=== PATIENT | male | born 1965 | race African-American/Black ===

== ENCOUNTER 2024-03-24 14:18 | Inpatient (IN) | payer MEDICARE ==
[~2024-03-24] VITALS: Ht 188 cm; Wt 85.7 kg
[2024-03-24] MEDS: SODIUM CHLORIDE 0.9% 1,000 ML IV ONE (15:09)
[2024-03-24] MEDS: KETOROLAC 30MG/ML VIAL IV STA (15:10)
[2024-03-24 15:21] LABS: BASOPHILS % 0.5 % (0.0-2.0); EOSINOPHILS % 1.1 % (0.0-5.0); HEMATOCRIT. 34.9 % (42.0-52.0); HEMOGLOBIN. 11.5 g/dL (14.0-18.0); LYMPHOCYTES % 8.4 % (20.0-50.0); MEAN CORPUSCULAR HEMOGLOBIN 32.2 pg (28.0-32.0); MEAN CORPUSCULAR HGB CONC 33.1 g/dL (31.0-37.0); MEAN CORPUSCULAR VOLUME 97.4 fL (80.0-94.0); MONOCYTES % 9.2 % (2.0-8.0); NEUTROPHILS % 80.8 % (40.0-76.0); PLATELET 192 x1000/uL (130-400); RED BLOOD CELL COUNT 3.58 mill/uL (4.7-6.1); RED CELL DISTRIBUTION WIDTH 12.8 % (11.6-14.6); WHITE BLOOD COUNT 8.3 x1000/uL (4.5-11.0)
[2024-03-24 15:27] LABS: CHLORIDE 109 mEq/L (98-107); POTASSIUM 3.8 mEq/L (3.5-5.1); SODIUM 143 mEq/L (136-145)
[2024-03-24 15:28] LABS: CALCIUM 8.8 mg/dL (8.7-10.4); CARBON DIOXIDE 28 mEq/L (21-32)
[2024-03-24 15:33] LABS: CREATININE 1.1 mg/dL (0.6-1.3); GLUCOSE 142 mg/dL (70-105); TROPONIN I HIGH SENSITIVITY 27 ng/L (3.0-53); UREA NITROGEN BLOOD 17 mg/dL (9-23)
[2024-03-24 15:35] LABS: ALANINE AMINOTRANSFERASE 25 IU/L (10-49); ALBUMIN 3.9 g/dL (3.2-4.8); ASPARTATE AMINOTRANSFERASE 35 IU/L (<34)
[2024-03-24 15:36] LABS: BILIRUBIN TOTAL 0.3 mg/dL (0.1-1.0)
[2024-03-24 15:48] LABS: ETHANOL BLOOD < 10 mg/dL (<10)
[2024-03-24] MEDS ORDERED: NICARDIPINE 50 MG in SODIUM CHLORIDE 0.9% 230 ML IV STA (16:12)
[2024-03-24] MEDS: NICARDIPINE 40MG/200ML PREMIX 200 ML IV NR (16:29)
[2024-03-24] MEDS: LEVETIRACETAM 500MG PREMIX 100 ML IV ONE (16:29)
[2024-03-24] MEDS ORDERED: NICARDIPINE 100 MG in SODIUM CHLORIDE 0.9% 60 ML IV PRN (17:45)
[2024-03-24 17:58] LABS: IRON 45 ug/dL (65-175)
[2024-03-24 17:59] LABS: LDL CHOLESTEROL 71 mg/dL (5-100); TRIGLYCERIDE 74 mg/dL (0-150)
[2024-03-24 18:00] LABS: CHOLESTEROL 150 mg/dL (<200); HDL CHOLESTEROL 64 mg/dL (>55)
[2024-03-24] MEDS ORDERED: NICARDIPINE 50 MG in SODIUM CHLORIDE 0.9% 250 ML IV PRN (18:00)
[2024-03-24 18:01] LABS: TOTAL IRON BINDING CAPACITY 291 ug/dl (250-425)
[2024-03-24 18:04] LABS: FOLIC ACID (FOLATE) SERUM 13.98 ng/mL (>5.38); VITAMIN B12 SERUM 325 pg/mL (211-911)
[2024-03-24 18:05] LABS: THYROID STIMULATING HORMONE 0.36 uIU/mL (0.55-4.78)
[2024-03-24 18:10] LABS: INR 0.9; PROTHROMBIN TIME 9.8 sec (9.6-11.0)
[2024-03-24] MEDS: DEXT 5%/LACTATED RINGERS 1,000 ML IV SCH (18:32)
[2024-03-24] MEDS: IOHEXOL-300 100 ML BOTTLE ONE (19:49)
[2024-03-25] VITALS (65 sets, daily range): BP systolic 117–162; BP diastolic 58–90; PULSE 61–99; RESP 11–30; TEMP 36.6696–37.39188; O2SAT 93–100
[2024-03-25] MEDS: LEVETIRACETAM 500MG PREMIX 100 ML IV SCH ×2 (00:16→09:38)
[2024-03-25] MEDS ORDERED: NICARDIPINE 100 MG in SODIUM CHLORIDE 0.9% 60 ML IV PRN ×2 (03:15→04:30)
[2024-03-25] MEDS: NICARDIPINE 100 MG in SODIUM CHLORIDE 0.9% 60 ML IV PRN ×2 (05:29→18:42)
[2024-03-25] MEDS: DEXT 5%/LACTATED RINGERS 1,000 ML IV SCH ×2 (05:30→18:42)
[2024-03-25 05:43] LABS: CHLORIDE 111 mEq/L (98-107); POTASSIUM 4.1 mEq/L (3.5-5.1); SODIUM 144 mEq/L (136-145)
[2024-03-25 05:44] LABS: HEMATOCRIT. 37.4 % (42.0-52.0); HEMOGLOBIN. 12.1 g/dL (14.0-18.0); MEAN CORPUSCULAR HEMOGLOBIN 31.6 pg (28.0-32.0); MEAN CORPUSCULAR HGB CONC 32.4 g/dL (31.0-37.0); MEAN CORPUSCULAR VOLUME 97.7 fL (80.0-94.0); MEAN PLATELET VOLUME 10.5 fl (7.4-10.4); PLATELET 202 x1000/uL (130-400); RED BLOOD CELL COUNT 3.83 mill/uL (4.7-6.1); RED CELL DISTRIBUTION WIDTH 12.9 % (11.6-14.6); WHITE BLOOD COUNT 12.8 x1000/uL (4.5-11.0)
[2024-03-25 05:45] LABS: CARBON DIOXIDE 27 mEq/L (21-32)
[2024-03-25 05:46] LABS: CALCIUM 9.1 mg/dL (8.7-10.4)
[2024-03-25 05:50] LABS: GLUCOSE 119 mg/dL (70-105)
[2024-03-25 05:51] LABS: UREA NITROGEN BLOOD 27 mg/dL (9-23)
[2024-03-25 05:52] LABS: ALANINE AMINOTRANSFERASE 36 IU/L (10-49); ALBUMIN 3.9 g/dL (3.2-4.8); ASPARTATE AMINOTRANSFERASE 53 IU/L (<34)
[2024-03-25 05:53] LABS: BILIRUBIN TOTAL 0.7 mg/dL (0.1-1.0); PHOSPHORUS 2.8 mg/dL (2.5-4.9); PROTEIN TOTAL 6.2 g/dL (6.0-8.3)
[2024-03-25 05:54] LABS: CREATININE 1.6 mg/dL (0.6-1.3)
[2024-03-25 06:57] LABS: DIFFERENTIAL COMMENT 1
[2024-03-25] MEDS: PANTOPRAZOLE SODIUM 40 MG/VIAL IV SCH (09:38)
[2024-03-25 10:13] LABS: PLATELET ESTIMATE NORMAL
[2024-03-25] MEDS ORDERED: MORPHINE SULFATE 4 MG/ML INJ (FOR IV/IM USE) IV NR (12:36)
[2024-03-25] MEDS ORDERED: THROMBIN (BOVINE) 5000 UNITS/VIAL TOP ONE (13:28)
[2024-03-25] MEDS ORDERED: LIDOCAINE HCL/EPINEPHRINE 1%-EPI 1:100,000 20ML VIAL ONE (13:28)
[2024-03-25] MEDS ORDERED: GENTAMICIN SULF 40MG/ML 2ML VIAL ONE (13:29)
[2024-03-25] MEDS ORDERED: PROPOFOL 200MG/20ML VIAL IV ONE ×2 (13:32→15:12)
[2024-03-25] MEDS ORDERED: CEFAZOLIN SODIUM 1000MG/VIAL ONE (13:32)
[2024-03-25] MEDS ORDERED: DEXAMETHASONE 4MG/ML 1ML VIAL ONE (13:32)
[2024-03-25] MEDS ORDERED: MIDAZOLAM HCL 2 MG/2 ML VIAL ONE (13:32)
[2024-03-25] MEDS ORDERED: ONDANSETRON HCL 4MG/2ML INJ ONE (13:32)
[2024-03-25] MEDS ORDERED: FENTANYL CITRATE/PF 50MCG/ML 2ML VIAL ONE (13:32)
[2024-03-25] MEDS ORDERED: ROCURONIUM BROMIDE 10MG/ML VIAL 5ML IV ONE (13:55)
[2024-03-25] MEDS ORDERED: CEFAZOLIN SODIUM 1000MG/VIAL IV SCH (14:00)
[2024-03-25] MEDS ORDERED: NALOXONE HCL 0.4MG/ML VIAL IV PRN (14:15)
[2024-03-25] MEDS ORDERED: HYDROMORPHONE HCL/PF 1MG/ML INJ ONE (14:24)
[2024-03-25] MEDS ORDERED: SUGAMMADEX SODIUM 200MG/2ML VIAL IV ONE (15:24)
[2024-03-25] MEDS: MORPHINE SULFATE 4 MG/ML INJ (FOR IV/IM USE) IV PRN (18:41)
[2024-03-25] MEDS: CEFAZOLIN 1000MG PREMIX 50ML IV SCH (18:42)
[2024-03-25] MEDS: DEXAMETHASONE 10 MG/ML VIAL IV SCH (18:42)
[2024-03-26] VITALS (93 sets, daily range): BP systolic 119–149; BP diastolic 60–88; PULSE 65–97; RESP 0–35; TEMP 37.2252–38.16972; O2SAT 92–100
[2024-03-26] MEDS: LABETALOL 5MG/ML 4ML INJ IV NR (00:33)
[2024-03-26 14:11] LABS: BG BASE EXCESS 0.7 mmol/L (-2.0-3.0); BG CARBOXYHEMOGLOBIN 0.5 % (0.5-1.5); BG DEOXYHEMOGLOBIN 3.5 % (0.0-5.0); BG HCO3 ACT 24.7 mmol/L (21.0-28.0); BG METHEMOGLOBIN 0.3 % (0.5-1.5); BG OXYGEN SATURATION 96.5 % (94.0-98.0); BG OXYHEMOGLOBIN 95.7 % (94.0-98.0); BG PCO2 37.7 mmHg (35.0-48.0); BG PH 7.435 (7.350-7.450); BG PO2 83.4 mmHg (83.0-108.0); BG SAMPLE SITE ALINE; BG TOTAL HEMOGLOBIN 11.5 g/dL (13.5-17.5); BG VENT MODE NASAL CANNULA
[2024-03-26] MEDS: ACETAMINOPHEN 650MG SUPP PR PRN (20:29)
[2024-03-27] VITALS (94 sets, daily range): BP systolic 118–160; BP diastolic 63–120; PULSE 60–122; RESP 0–44; TEMP 36.6696–37.39188; O2SAT 90–99
[2024-03-27] MEDS: IPRATROPIUM/ALBUTEROL 0.5-3(2.5)MG/3ML NEB HHN SCH (20:45)
[2024-03-28] VITALS (95 sets, daily range): BP systolic 111–146; BP diastolic 62–101; PULSE 60–102; RESP 0–35; TEMP 36.78072–37.94748; O2SAT 90–99
[2024-03-28] MEDS: ONDANSETRON HCL 4MG/2ML INJ IV PRN (01:14)
[2024-03-28] MEDS: NIFEDIPINE XL 90MG TAB PO SCH (11:57)
[2024-03-28] MEDS: CLONIDINE HCL 0.3MG/24HR PATCH TD SCH (14:51)
[2024-03-28] MEDS: HYDRALAZINE HCL 50MG TABLET PO SCH (14:51)
[2024-03-28] MEDS: DEXAMETHASONE 4MG/ML 1ML VIAL IV SCH (14:51)
[2024-03-29] VITALS (73 sets, daily range): BP systolic 55–153; BP diastolic 16–109; PULSE 62–114; RESP 7–34; TEMP 36.28068–37.33632; O2SAT 90–99
[2024-03-29 05:51] LABS: HEMOGLOBIN. 12.2 g/dL (14.0-18.0); MEAN CORPUSCULAR HEMOGLOBIN 31.3 pg (28.0-32.0); MEAN CORPUSCULAR HGB CONC 32.8 g/dL (31.0-37.0); MEAN CORPUSCULAR VOLUME 95.4 fL (80.0-94.0); MEAN PLATELET VOLUME 9.6 fl (7.4-10.4); PLATELET 253 x1000/uL (130-400); RED BLOOD CELL COUNT 3.88 mill/uL (4.7-6.1); RED CELL DISTRIBUTION WIDTH 12.4 % (11.6-14.6); WHITE BLOOD COUNT 9.9 x1000/uL (4.5-11.0)
[2024-03-29 05:56] LABS: CARBON DIOXIDE 29 mEq/L (21-32); CHLORIDE 102 mEq/L (98-107); POTASSIUM 4.1 mEq/L (3.5-5.1); SODIUM 138 mEq/L (136-145)
[2024-03-29 06:02] LABS: CREATININE 0.8 mg/dL (0.6-1.3); GLUCOSE 125 mg/dL (70-105); UREA NITROGEN BLOOD 30 mg/dL (9-23)
[2024-03-29 06:58] LABS: DIFFERENTIAL COMMENT 1
[2024-03-29 12:10] LABS: PLATELET ESTIMATE NORMAL
[2024-03-29] MEDS: BACLOFEN 10MG TABLET PO SCH (14:11)
[2024-03-30] VITALS (10 sets, daily range): BP systolic 121–159; BP diastolic 73–101; PULSE 56–87; RESP 17–20; TEMP 36.22512–36.9474; O2SAT 93–98
[2024-03-30] MEDS: ACETAMINOPHEN 650MG SUPP PR PRN (00:35)
[2024-03-30] MEDS: NITROGLYCERIN 0.4MG TABLET SL SL PRN (11:12)
[2024-03-30] MEDS: IPRATROPIUM/ALBUTEROL 0.5-3(2.5)MG/3ML NEB NEB PRN (12:50)
[2024-03-30] MEDS: LORAZEPAM 2MG/ML INJ IV PRN (16:56)
[2024-03-31] VITALS (10 sets, daily range): BP systolic 113–157; BP diastolic 67–88; PULSE 58–95; RESP 16–22; TEMP 36.28068–39.28092; O2SAT 90–100
[2024-03-31] MEDS ORDERED: NALOXONE HCL 0.4MG/ML VIAL IV PRN (09:45)
[2024-03-31] MEDS: ENOXAPARIN 40MG/0.4ML SYR SUBCUT SCH (13:33)
[2024-03-31] MEDS: TRAMADOL 50MG TABLET PO PRN (13:34)
[2024-03-31 18:22] LABS: TROPONIN I HIGH SENSITIVITY 23 ng/L (3.0-53)
[2024-03-31] MEDS: PIPERACILLIN/TAZO 3.375G/50ML 50 ML IV SCH (23:34)
[2024-04-01] VITALS (9 sets, daily range): BP systolic 111–179; BP diastolic 64–101; PULSE 61–111; RESP 18–20; TEMP 36.22512–37.503; O2SAT 95–100
[2024-04-01 00:50] LABS: CLARITY URINE CLOUDY (CLEAR); COLOR URINE DARK YELLOW (YELLOW); GLUCOSE URINE NEGATIVE (NEGATIVE); KETONES URINE NEGATIVE (NEGATIVE); LEUKOCYTE ESTERASE URINE TRACE (NEGATIVE); NITRITE URINE NEGATIVE (NEGATIVE); OCCULT BLOOD URINE NEGATIVE (NEGATIVE); PROTEIN URINE 1+ (NEGATIVE); SPECIFIC GRAVITY URINE 1.021 (1.005-1.030)
[2024-04-01 03:44] LABS: RBC URINE 0-2 /hpf (0-2); SQUAMOUS EPITHELIAL CELL URINE NONE SEEN /lpf (RARE/1+); WBC URINE 0-2 /hpf (0-2)
[2024-04-01 03:46] LABS: BACTERIA URINE TRACE
[2024-04-02] VITALS (7 sets, daily range): BP systolic 109–134; BP diastolic 70–81; PULSE 68–77; RESP 18–21; TEMP 36.05844–37.16964; O2SAT 94–97
[2024-04-03] VITALS: BP 135/82; PULSE 65; RESP 20; TEMP 37.33632; O2SAT 96
[2024-04-03 04:00] VITALS: BP 124/73; PULSE 60; RESP 18; TEMP 36.28068; O2SAT 96
[2024-04-03 08:00] VITALS: BP 129/82; PULSE 62; RESP 16; TEMP 36.89184; O2SAT 97
[2024-04-03 12:00] VITALS: BP 130/75; PULSE 59; RESP 16; TEMP 36.78072; O2SAT 97
[2024-04-03 16:00] VITALS: PULSE 63; RESP 21; TEMP 36.78072; O2SAT 98
[2024-04-03 20:00] VITALS: BP 135/77; PULSE 60; RESP 18; TEMP 36.83628; O2SAT 97
[2024-04-04] VITALS (7 sets, daily range): BP systolic 102–159; BP diastolic 56–96; PULSE 58–89; RESP 17–20; TEMP 36.61404–37.11408; O2SAT 98–100
[2024-04-05 04:00] VITALS: BP 138/84; PULSE 64; RESP 20; TEMP 36.9474
[2024-04-05 09:15] VITALS: BP 165/78; PULSE 78; RESP 20; TEMP 36.6696; O2SAT 100
[2024-04-05 12:34] VITALS: BP 123/80; PULSE 65; RESP 20; TEMP 36.05844; O2SAT 100
[2024-04-05 16:33] VITALS: BP 128/76; PULSE 68; RESP 20; TEMP 36.114; TEMP 36.11400; O2SAT 1
[2024-04-18] MEDS ORDERED: AMLO5TAB88 PO (09:52)
[2024-04-18] MEDS ORDERED: RISP05 PO (09:52)
[2024-04-18] MEDS ORDERED: ENOX40DI8 SUBCUT (09:52)
== END 2024-04-05 17:00 | DRG 28 ==
LOC: ER 14:18 → EDBEDREQTM 17:02 → EDBEDREQ 17:02 → ER 03-25 04:25 → MICUNO 03-25 04:45 → 6WST 03-29 17:53
PROVIDERS: ADMIT Internal Medicine; ATTEND Internal Medicine
PROC: 0RG20J1 Fusion of 2 or more Cervical Vertebral Joints with Synthetic Substitute, Posterior Approach, Posterior Column, Open Approach (ICD-10-PCS; principal; 2024-03-25)
PROC: 00NW0ZZ Release Cervical Spinal Cord, Open Approach (ICD-10-PCS; 2024-03-25)
DX: S06.5XAA Traumatic subdural hemorrhage with loss of consciousness status unknown, initial encounter (principal); G82.50 Quadriplegia, unspecified; J96.01 Acute respiratory failure with hypoxia; N17.0 Acute kidney failure with tubular necrosis; M47.16 Other spondylosis with myelopathy, lumbar region; I16.1 Hypertensive emergency; Z59.00 Homelessness unspecified; I10 Essential (primary) hypertension; D63.8 Anemia in other chronic diseases classified elsewhere; D72.829 Elevated white blood cell count, unspecified; I25.10 Atherosclerotic heart disease of native coronary artery without angina pectoris; K40.90 Unilateral inguinal hernia, without obstruction or gangrene, not specified as recurrent; M47.816 Spondylosis without myelopathy or radiculopathy, lumbar region; M48.02 Spinal stenosis, cervical region; S80.212A Abrasion, left knee, initial encounter; F17.210 Nicotine dependence, cigarettes, uncomplicated; M48.061 Spinal stenosis, lumbar region without neurogenic claudication; N40.0 Benign prostatic hyperplasia without lower urinary tract symptoms; S80.211A Abrasion, right knee, initial encounter; S00.81XA Abrasion of other part of head, initial encounter; X58.XXXA Exposure to other specified factors, initial encounter; Y92.89 Other specified places as the place of occurrence of the external cause; Y93.89 Activity, other specified; Y99.8 Other external cause status; I25.2 Old myocardial infarction; Z95.5 Presence of coronary angioplasty implant and graft
CPT/HCPCS: 36415; 36600; 70486; 71045; 71260; 72040; 72131; 72141; 74177; 76000; 80048; 80053; 80061; 80320; 81003; 82375; 82607; 82746; 82805; 83036; 83540; 83550; 83735; 84100; 84439; 84443; 84484; 85025; 88304; 88311; 92610; 93005; 93306; 93970; 94640; 95925; 95926; 95928; 95929; 97110; 97163; 97166; 97530; 97535; 99291; J0690; J1100; J1170; J1580; J1650; J1885; J1953; J2060; J2250; J2270; J2405; J2470; J2543; J2704; J3010; J3490; J7030; J7050; J7121; Q9967; C1713; G0480